=== PATIENT | female | born 1990 ===

== ENCOUNTER → 2025-09-03 | Outpatient (CLI) | payer BC ==
[2025-09-09 06:35] LABS: AMPHETAMINE,URN,QUANT 1037 ng/mL; MDA,URN,QUANT <200 ng/mL; MDEA,URN,QUANT <200 ng/mL; MDMA,URN,QUANT <200 ng/mL; METHAMPHETAMINE,URN,QUANT <200 ng/mL; PHENTERMINE,URN,QUANT <200 ng/mL
== END ==
LOC: LAB SHORT 17:25 → LAB 17:25
PROVIDERS: Physician Assistant
DX: Z51.81 Encounter for therapeutic drug level monitoring (principal); Z79.899 Other long term (current) drug therapy
CPT/HCPCS: G0480